=== PATIENT | female | born 1930 | race Caucasian/White ===

== ENCOUNTER 2017-06-25 11:40 | Emergency (ER) | payer OTHER ==
[~2017-06-25] VITALS: Ht 144.8 cm; Wt 65.4 kg
[~2017-06-25 11:40] MED LIST: ARTIFICIALS TEA30 ML BOTH EYES; ATORVASTATIN PO; BENAZEPRIL HCL40 MG PO; BUFFERIN 81 MG81 MG PO; FELODIPINE ER10 MG PO; GARLIC OIL1 EACH PO; LEVOTHYROXINE75 MCG PO; LIPITOR80 MG PO; Lopressor PO; METOPROLOL TART50 MG PO; TYLENOL REGULA325 MG PO; Xarelto PO
[2017-06-25 15:43] VITALS: BP 120/68
== END 2017-06-25 15:46 | disposition home or self-care (01) ==
LOC: EME 11:40
PROC: 2W3DX1Z Immobilization of Left Lower Arm using Splint (ICD-10-PCS; principal; 2017-06-25)
DX: S63.502A Unspecified sprain of left wrist, initial encounter (principal); W01.0XXA Fall on same level from slipping, tripping and stumbling without subsequent striking against object, initial encounter; Y99.2 Volunteer activity; I25.2 Old myocardial infarction; Z79.01 Long term (current) use of anticoagulants; I10 Essential (primary) hypertension; E78.5 Hyperlipidemia, unspecified; Z79.82 Long term (current) use of aspirin
CPT/HCPCS: 70450; 73110; 73130; 99281; 99284